=== PATIENT | male | born 1990 | race Caucasian/White ===

== ENCOUNTER 2019-04-10 12:55 | Emergency (ER) | payer SELFPAY ==
[~2019-04-10] VITALS: Ht 177.8 cm; Wt 79.8 kg
[2019-04-10 13:14] VITALS: BP 145/69
--- NOTE | 2019-04-10 13:17 | NUR ---
PT TO [facility], VSS, AMBULATORY EVEN STEADY GAIT.
--- NOTE | 2019-04-10 13:41 | NUR ---
PT AMBULATED TO ER BED 09
--- NOTE | 2019-04-10 14:11 | NUR ---
PT BIB SELF FOR DIZZINESS, FEELING LIKE HE IS GOING TO PASS OUT, PT IS AWAKE AND ALERT. 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 PT SITTING IN BED CALM AND AWAKE .
[2019-04-10] MEDS ORDERED: LORazepam 0.5 MG TAB PO ONE (14:35)
[2019-04-10] MEDS ORDERED: LORazepam 2 MG/ML VIAL ONE (14:48)
[2019-04-10 15:26] VITALS: BP 128/72
== END 2019-04-10 15:30 | disposition home or self-care (01) ==
LOC: MED 12:55
DX: F41.9 Anxiety disorder, unspecified (principal); R42 Dizziness and giddiness; F17.200 Nicotine dependence, unspecified, uncomplicated; Z71.6 Tobacco abuse counseling
CPT/HCPCS: 99283; J2060